=== PATIENT | male | born 1935 | race Caucasian/White ===

== ENCOUNTER 2017-08-30 13:17 | Outpatient (CLI) | payer MEDICARE ==
--- NOTE | 2017-08-30 14:34 | RAD ---
LUMBAR SPINE 4 VIEWS: HISTORY: Lumbar radiculopathy. COMPARISON: None. FINDINGS: There are 5 lumbar-type vertebral bodies. The vertebral body height is maintained. There is osteoph yte formation at L2-L3 and L3-L4. Vacuum disk phenomenon at L2-L3 and L3-L4. There is 4.8 mm of retrolisthesis of L2 upon L3 in the neutral position, retrolisthesis resolved on f lexion and there is 2.9 mm of retrolisthesis upon extension. There is 5.5 mm of retrolisthesis of L3 upon L4 in the neutral position, 2.4 mm retrolisthesis upon f lexion, and 3.2 mm of retrolisthesis upon extension. Vascular calcifications are noted. 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 POS: WANDA
--- NOTE | 2017-08-30 15:22 | MRI ---
MRI LUMBAR SPINE WITHOUT IV CONTRAST: Date: 08/30/17 INDICATION: Bilateral leg weakness. COMPARISON: Lumbar spine radiograph dated 06/20/17. FINDINGS: There are five lumbar-type vertebral bodies. At L5-S1, there is advanced facet joint degenerative change. There is no appreciable central canal or neural foraminal narrowing. At L4-5, there is prominent facet joint degenerative change. There are anteromedial projecting syno vial cysts bilaterally. The one on the right measures 1.4 cm and the one on the left measures 6.0 mm. There is a broad based disc bulge with facet hypertrophy. In addition to the synovial cysts, there i s some severe central canal narrowing with moderate bilateral neural foraminal narrowing. At L3-4, there is retrolisthesis. There is broad based disc osteophyte complex with facet hypertrophy inducing mild central canal narrowing. There is moderate right and mild left neural foraminal narrow ing. 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 At L2-3, there is a broad based bulge with facet hypertrophy inducing mild neural foraminal narrowing . At L1-L2, there is a broad based bulge without appreciable central canal or neural foraminal narrowin g. At T12-L1, there is no appreciable central canal or neural foraminal narrowing. There is partial visualization of the left kidney with suggestion for prominent dilatation of the lef t renal pelvis. IMPRESSION: 1. Severe central canal narrowing at L4-5 with moderate bilateral neural foraminal narrowing. 2. Moderate right and mild left neural foraminal narrowing, as well mild central canal narrowing at L3-4. 3. Prominence of the left renal collecting system may be related to UPJ obstruction or possibly hydr onephrosis. Dedicated CT evaluation and follow-up is recommended for further characterization. POS: WANDA
== END 2017-08-30 13:18 | disposition home or self-care (01) ==
LOC: TBSIIMAG 13:17
PROVIDERS: ATTEND Surgery
DX: M47.26 Other spondylosis with radiculopathy, lumbar region (principal); M48.061 Spinal stenosis, lumbar region without neurogenic claudication; M99.83 Other biomechanical lesions of lumbar region
CPT/HCPCS: 72110; 72148

== ENCOUNTER 2024-09-17 12:06 | Observation (INO) | payer MEDICARE ==
[2024-09-17 13:02] VITALS: BMI 27.1
[2024-09-17] MEDS ORDERED: Melatonin 3 MG TAB PO PRN (17:01)
[2024-09-17] MEDS ORDERED: Acetaminophen 325 MG TAB PO PRN (17:01)
[2024-09-17] MEDS ORDERED: Calcium Carbonate 500 MG ChewTAB PO PRN (17:01)
[2024-09-17] MEDS ORDERED: hydrALAZINE 20 MG/ML VIAL SLOW IVP PRN (17:21)
[2024-09-17 18:19] LABS: Troponin I 0.042 ng/mL (< 0.028)
[2024-09-17] MEDS: Heparin 5,000 UNITS/ML VIAL SC SCH (20:26)
[2024-09-17 21:06] LABS: Troponin I 0.109 ng/mL (< 0.028)
[2024-09-17] MEDS: Gabapentin 300 MG CAP PO SCH (21:42)
[2024-09-18 04:54] LABS: #Basophils 0.03 10x3/uL (0.0-0.2); #Eosinophils 0.17 10x3/uL (0.0-0.7); #Monocytes 0.50 10x3/uL (0.11-0.59); #Neutrophils 3.61 10x3/uL (1.40-6.50); %Basophils 0.5 % (0.0-1.0); %Eosinophils 2.9 % (0.0-10.0); %Lymphocytes 25.3 % (21.0-51.0); %Monocytes 8.7 % (0.0-10.0); %Neutrophils 62.4 % (42.0-75.0); Hematocrit 42.7 % (42.0-52.0); Hemoglobin 14.5 g/dL (14.0-18.0); Mean Corpuscular Hemoglobin 30.7 pg (27.0-31.0); Mean Corpuscular Volume 90.3 fL (78.0-98.0); Platelet Count 96 10x3/uL (130-400); Red Blood Cell (RBC) Count 4.73 mill/uL (4.70-6.10); White Blood Cell (WBC) Count 5.78 10x3/uL (4.8-10.8)
[2024-09-18 05:13] LABS: Anion Gap 10 mmol/L (10-20); BUN (Urea Nitrogen) 13 mg/dL (8.4-25.7); Calc. Creatinine Clearance 52 mL/min (70-130); Calcium 9.6 mg/dL (7.8-10.44); Carbon Dioxide 27 mmol/L (23-31); Cardiac Risk 3.4 (Less than 4.5); Chloride 105 mmol/L (98-107); Cholesterol 118 mg/dl (< 200 Desired); Glucose 96 mg/dL (83-110); HDL Cholesterol 35 mg/dL (>60 Neg Risk); LDL Cholesterol, Calculated 59 mg/dL; Potassium 3.7 mmol/L (3.5-5.1); Sodium 138 mmol/L (136-145); Triglycerides 118 mg/dL (Less than 150)
[2024-09-18 07:57] LABS: Troponin I 0.080 ng/mL (< 0.028)
[2024-09-18] MEDS: Lisinopril 10 MG TAB PO SCH (09:05)
[2024-09-18] MEDS: Pantoprazole 40 MG DR.TAB PO SCH (09:06)
[2024-09-18 15:15] VITALS: TEMP 98
[2024-09-18 16:09] VITALS: BP 133/83
[2024-09-18] MEDS: Aspirin 81 mg Enteric Coated Tablet PO SCH (16:39)
[2024-09-18] MEDS ORDERED: Lisinopril 10 MG TAB PO SCH (21:00)
[2024-09-19] MEDS ORDERED: Aspirin 81 mg Enteric Coated Tablet PO SCH (09:00)
== END 2024-09-18 18:15 | disposition home or self-care (01) ==
LOC: 2NO 12:15
PROVIDERS: ADMIT Family Medicine; ATTEND Family Medicine
DX: R79.89 Other specified abnormal findings of blood chemistry (principal); R94.31 Abnormal electrocardiogram [ECG] [EKG]; K21.9 Gastro-esophageal reflux disease without esophagitis; E78.5 Hyperlipidemia, unspecified; M54.30 Sciatica, unspecified side; I12.9 Hypertensive chronic kidney disease with stage 1 through stage 4 chronic kidney disease, or unspecified chronic kidney disease; N18.30 Chronic kidney disease, stage 3 unspecified; Z79.899 Other long term (current) drug therapy
CPT/HCPCS: 78452; 80048; 80061; 84484 ×2; 85025; 93005; 93017; 93306; 97535; A9503; J1644; J2785 ×2; 36415; 93010; 96372; G0378